=== PATIENT | female | born 1985 | race African-American/Black ===

== ENCOUNTER 2017-06-02 08:43 | Emergency (ER) | payer OTHER ==
[~2017-06-02] VITALS: Ht 149.9 cm; Wt 61.7 kg
[~2017-06-02 08:43] MED LIST: LUTERA-28 TABL1 EACH; MEDROL4 M2 PO; PERCOCET 5-3251 EACH PO; PROAIR HFA8.5 GM INH
--- NOTE | 2017-06-02 09:56 | ED DYSPNEA/ASTHMA COMPLAINT ---
History of Present Illness General Chief Complaint: Upper Respiratory Sx/Fever Stated Complaint: UPPER RESP SYMPTOMS X 3 DAYS Source: patient Exam Limitations: no limitations Vital Signs & Intake/Output Vital Signs & Intake/Output Vital Signs Date Time Temp Pulse Resp B/P B/P Pulse O2 O2 Flow FiO2 Mean Ox Delivery Rate 06/02 1125 96 Room Air 06/02 1116 98.7 85 22 130/80 96 Room Air 06/02 1025 95 06/02 0855 97.6 75 16 128/86 98 Room Air Allergies Coded Allergies: No Known Allergies (02/24/17) Reconcile Medications Albuterol Sulfate (Proair Hfa) 90 MCG HFA.AER.AD 2 PUF INH Q4-6 PRN PRN SOB/ COUGH Doxycycline Hyclate 100 MG TABLET 1 TAB PO BID BRONCHITIS Ibuprofen 800 MG TABLET 1 TAB PO TID PAIN Prednisone 50 MG TABLET 1 TAB PO DAILY BRONCHITIS Triage Note: PT TO ED FOR COUGH AND RUNNY NOSE X 3 DAYS. Triage Nurses Notes Reviewed? yes Onset: Abrupt Duration: day(s): (5), constant, continues in ED, getting worse Timing: recent history Severity: mild, moderate Activities at Onset: none Prior Episodes/Possible Cause: occasional episodes Modifying Factors: Worsens With: movement. Associated Symptoms: cough, wheezing LMP (ages 10-50): unknown : No Patient currently breastfeeds: No HPI: 32-year-old female no past mental history since her evaluation of cough and shortness of breath. Patient states that symptoms started about 5 days ago and getting worse. Cough is dry. She is she is wheezing and short of breath. She reports pain in her chest with coughing. She feels like her chest is swollen. No trauma the chest. No history of asthma. She does not smoke. No control recent trauma recent surgery or history of blood clots. She was diagnosed with pneumonia about one month ago and feels like she never got better. She states she's been coughing ever since. No fevers or hemoptysis. No nausea vomiting diarrhea. She is not taking any medicine for his symptoms. Past History Travel History Traveled to [place] past 21 day No Medical History Any Pertinent Medical History? see below for history Neurological: NONE EENT: NONE Cardiovascular: NONE Respiratory: NONE Gastrointestinal: NONE Hepatic: NONE Renal: NONE Musculoskeletal: NONE Psychiatric: NONE Endocrine: NONE Blood Disorders: NONE Cancer(s): NONE Surgical History Surgical History: none Psychosocial History What is your primary language Yemeni Tobacco Use: Never used ETOH Use: denies use Illicit Drug Use: denies illicit drug use Family History Hx Contributory? No Review of Systems Review of Systems Constitutional: Reports: no symptoms. EENTM: Reports: no symptoms. Respiratory: Reports: see HPI, cough, short of breath, wheezing. Cardiovascular: Reports: no symptoms. GI: Reports: no symptoms. Genitourinary: Reports: no symptoms. Musculoskeletal: Reports: no symptoms. Skin: Reports: no symptoms. Neurological/Psychological: Reports: no symptoms. Hematologic/Endocrine: Reports: no symptoms. Immunologic/Allergic: Reports: no symptoms. All Other Systems: Reviewed and Negative Physical Exam Physical Exam General Appearance: well developed/nourished, no apparent distress, alert, awake Head: atraumatic, normal appearance Eyes: Bilateral: normal appearance, PERRL, EOMI. Ears, Nose, Throat: normal pharynx, normal ENT inspection, hearing grossly normal Neck: normal inspection, supple, full range of motion Respiratory: no respiratory distress, quiet respiration, wheezing (MILD BILATERALLY), CHEST WALL IS TENDER TO PALPATION OVER THE STERNUM Cardiovascular: regular rate/rhythm, normal peripheral pulses Peripheral Pulses: 2+ radial (R), 2+ radial (L) Gastrointestinal: normal bowel sounds, soft, non-tender, no organomegaly Extremities: normal inspection, normal capillary refill, normal range of motion, no edema Neurologic/Psych: no motor/sensory deficits, awake, alert, oriented x 3 Skin: intact, normal color, warm/dry Lymphatic: no anterior cervical stephania Core Measures ACS in differential dx? No CVA/TIA Diagnosis No Sepsis Present: No Sepsis Focused Exam Completed? No Progress Differential Diagnosis: asthma, bronchitis, costochondritis, COPD, musculoskeletal pain, pulmonary embolism, pneumonia, VIRAL UPPER RESPIRATORY INFECTION Plan of Care: Orders Procedure Date/time Status AEROSOL (GEN) 06/02 1111 Complete URINE 06/02 0957 Complete URINALYSIS 06/02 0957 Complete Laboratory Tests 06/02/17 1041: Urine Color YEL, Urine Clarity HAZY H, Urine pH 6.0, Ur Specific [place] 1.025, Urine Protein NEG, Urine Ketones NEG, Urine Nitrite NEG, Urine Bilirubin NEG, Urine Urobilinogen 0.2, Ur Leukocyte Esterase NEG, Ur Microscopic SEDIMENT EXAMINED, Urine RBC 1-3, Urine WBC 1-3 H, Ur Epithelial Cells PACKD H, Urine Bacteria PACKD H, Urine Mucus RARE, Urine Hemoglobin NEG, Urine Glucose NEG, Urine Test NEGATIVE Patient seen and evaluated. Lung sounds are diminished bilaterally. Very mild wheezing is present. Patient be given a DuoNeb. With history of recent pneumonia we'll check a chest x-ray. Patient is perC negative. Patient is feeling better AFTER DuoNeb. Chest x-ray shows evidence of bronchitis. Patient will be treated with ibuprofen and prednisone pro-air inhaler and doxycycline. Discussed return precautions in detail. Follow-up with primary care doctor this coming week. Patient is nontoxic-appearing and agrees the plan. Diagnostic Imaging: Viewed by Me: Radiology Read. Discussed w/RAD: Radiology Read. Radiology Impression: PATIENT: JUSTIN LANGE PRESENT AGE: 32 PATIENT ACCOUNT NO: [id number] : 86 LOCATION: [facility] ORDERING PHYSICIAN: David PATTON SERVICE DATE: 06/02/17 EXAM TYPE: RAD - XRY-CHEST XRAY, PA AND LATERAL EXAMINATION: CR CHEST CLINICAL INFORMATION: Cough. Pneumonia 1 month ago. COMPARISON: Chest x-ray dated 02/24/2017. TECHNIQUE: 2 views of the chest were obtained. FINDINGS: The cardiomediastinal silhouette is within normal limits in size. Lungs bilaterally are symmetrically expanded. There is slight thickening of the central airways. No focal consolidation, effusion or pneumothorax is seen. Bony structures are unremarkable. IMPRESSION: Slight thickening of the central airways, consistent with reactive airways disease or bronchitis. No focal pneumonia. DICTATED BY: Kari Burgess MD DATE/TIME DICTATED:06/02/171139 ELECTRIC KNIFE OPERATOR:NOAH DATE/TIME TRANSCRIBED:06/02/171139 Initial ED EKG: none Departure Departure Disposition: HOME OR SELF CARE Condition: Stable Clinical Impression Primary Impression: Acute bronchitis Qualifiers: Bronchitis organism: unspecified organism Qualified Code: J20.9 - Acute bronchitis, unspecified Referrals: Barrie Bradford MD (PCP/Family) Additional Instructions: Take antibiotics and steroids as directed for the full course. Tylenol or ibuprofen as needed for pain. Use pro-air inhaler 2 puffs every 4-6 hours as needed. Robitussin and Mucinex as needed for cough. Make a follow-up appointment with YOUR primary care doctor as soon as possible. Monitor symptoms and return to the emergency department with any concerns. Departure Forms: Customer Survey General Discharge Information Prescriptions: Current Visit Scripts Prednisone 1 TAB PO DAILY #5 TAB Albuterol Sulfate (Proair Hfa) 2 PUF INH Q4-6 PRN PRN SOB/COUGH #1 INHAL Doxycycline Hyclate 1 TAB PO BID #14 TAB Ibuprofen 1 TAB PO TID #30 TAB Critical Care Note Critical Care Note Critical Care Time: non-applicable
--- NOTE | 2017-06-02 11:45 | RADIOLOGY REPORT ---
EXAMINATION: CR CHEST CLINICAL INFORMATION: Cough. Pneumonia 1 month ago. COMPARISON: Chest x-ray dated 02/24/2017. TECHNIQUE: 2 views of the chest were obtained. FINDINGS: The cardiomediastinal silhouette is within normal limits in size. Lungs bilaterally are symmetrically expanded. There is slight thickening of the central airways. No focal consolidation, effusion or pneumothorax is seen. Bony structures are unremarkable. IMPRESSION: Slight thickening of the central airways, consistent with reactive airways disease or bronchitis. No focal pneumonia.
[2017-06-02] MEDS ORDERED: IBUPROFEN800 M1 PO (12:18)
[2017-06-02] MEDS ORDERED: DOXYCYCLINE HY100 M4 PO (12:18)
[2017-06-02] MEDS ORDERED: PROAIR HFA8.5 GM INH (12:18)
[2017-06-02] MEDS ORDERED: PREDNISONE50 M1 PO (12:18)
[2017-06-02 12:41] VITALS: BP 128/74
== END 2017-06-02 12:40 ==
LOC: ERH 08:43
DX: J20.9 Acute bronchitis, unspecified (principal)
CPT/HCPCS: 1263; 81001; 81025